=== PATIENT | female | born 1970 | race Caucasian/White ===

== ENCOUNTER → 2021-10-26 06:56 | Outpatient (CLI) | payer OTHER, SELFPAY ==
[2021-10-26 08:20] LABS: Hematocrit 41.4 % (36-46); Hemoglobin 14.6 g/dL (12.0-16.0); Mean Corpuscular HGB Conc 35.2 % (30-36); Mean Corpuscular Hemoglobin 34.1 PG (26-34); Mean Corpuscular Volume 96.9 fL (80-100); Platelet Count 267 X10^3/uL (150-400); Red Blood Cell Count 4.27 X10^6/uL (4.0-5.2); Red Cell Distribution Width 12.1 % (11.6-14.8); White Blood Cell Count 7.3 X10^3/uL (4.5-11.0)
[2021-10-26 08:23] LABS: Alanine Aminotransferase 85 IU/L (<35); Albumin 4.2 g/dL (3.5-5.0); Albumin Globulin Ratio 1.4 (1.0-2.8); Alkaline Phosphatase 141 U/L (38-126); Aspartate Aminotransferase 68 IU/L (14-36); Bilirubin Total 0.6 mg/dL (0.2-1.3); Blood Urea Nitrogen 14 mg/dL (7-17); Calcium 9.5 mg/dL (8.4-10.2); Carbon Dioxide 28 mmol/L (22-32); Chloride 102 mmol/L (98-107); Cholesterol 143 mg/dL (140-199); Estimated Glomerular Filt Rate > 60.0 mL/min (>60); Globulin 3.1 g/dL (1.7-4.1); Glucose 164 mg/dL (70-100); HDL Cholesterol 53 mg/dL (40-60); HEMOLYSIS < 15 (0-50); LDL Cholesterol Calculated 68 mg/dL (<100); Potassium 4.1 mmol/L (3.4-5.1); Sodium 136 mmol/L (137-145); Total Protein 7.3 g/dL (6.3-8.2); Triglycerides 108 mg/dL (35-150)
[2021-10-26 08:58] LABS: TSH w/ Reflex to FT4 2.36 uIU/mL (0.47-4.68)
== END ==
PROVIDERS: Family Provider Physician Assistant; PCP Physician Assistant; Referring Provider Student in an Organized Health Care Education/Training Program; Visit Provider Student in an Organized Health Care Education/Training Program
DX: Z13.220 Encounter for screening for lipoid disorders (principal); Z13.228 Encounter for screening for other metabolic disorders; E03.9 Hypothyroidism, unspecified
CPT/HCPCS: 36415; 80053; 80061; 84443; 85027

== ENCOUNTER 2023-04-24 09:23 | Emergency (ER) | payer OTHER, SELFPAY ==
[2023-04-24] VITALS (15 sets, daily range): BP systolic 96–144; BP diastolic 57–92; PULSE 91–112; RESP 13–23; TEMP 36.7; O2SAT 92–99; BMI 33.2
--- NOTE | 2023-04-24 09:28 | DI.RAD.S_ITS ---
PROCEDURE: XR CHEST 1V INDICATIONS: Shortness of breath TECHNIQUE: One view of the chest was acquired. COMPARISON: None. FINDINGS: Surgical changes and devices: None. Lungs and pleura: Lungs are clear. No pleural effusions or pneumothorax. Mediastinum: Mediastinal contours appear normal. Heart size is normal. Bones and chest wall: No suspicious bony lesions. Overlying soft tissues appear unremarkable. IMPRESSION: No evidence acute pulmonary process. Dictated by: Brigido Regan M.D. on 04/24/2023 at 9:46 Approved by: Brigido Regan M.D. on 04/24/2023 at 9:51
[2023-04-24 09:50] LABS: Add Manual Diff / Slide Review NO; Basophils Absolute Auto 100 /uL (0-100); Basophils Percent Auto 1.1 % (0-2); Eosinophils Absolute Auto 200 /uL (0-450); Hematocrit 44.3 % (36-46); Hemoglobin 15.6 g/dL (12.0-16.0); Lymphocytes Absolute Auto 2500 /uL (1100-4500); Lymphocytes Percent Auto 30.2 % (25-40); Mean Corpuscular HGB Conc 35.3 % (30-36); Mean Corpuscular Hemoglobin 33.4 PG (26-34); Mean Corpuscular Volume 94.7 fL (80-100); Monocytes Absolute Auto 500 /uL (0-900); Monocytes Percent Auto 6.5 % (3-14); Neutrophils Absolute Auto 4800 /uL (1500-7000); Neutrophils Percent Auto 59.2 % (50-75); Platelet Count 267 X10^3/uL (150-400); Red Blood Cell Count 4.67 X10^6/uL (4.0-5.2); Red Cell Distribution Width 12.4 % (11.6-14.8); White Blood Cell Count 8.2 X10^3/uL (4.5-11.0)
[2023-04-24 09:54] LABS: INR 1.2 (0.9-1.3)
[2023-04-24 09:58] LABS: Alanine Aminotransferase 86 IU/L (<35); Albumin 4.7 g/dL (3.5-5.0); Albumin Globulin Ratio 1.3 (1.0-2.8); Alkaline Phosphatase 101 U/L (38-126); Aspartate Aminotransferase 65 IU/L (14-36); BUN Creatinine Ratio 15.4 (6-22); Bilirubin Total 0.7 mg/dL (0.2-1.3); Blood Urea Nitrogen 16 mg/dL (7-17); Calcium 9.7 mg/dL (8.4-10.2); Carbon Dioxide 24 mmol/L (22-32); Chloride 97 mmol/L (98-107); Estimated Glomerular Filt Rate > 60 mL/min (>60); Globulin 3.6 g/dL (1.7-4.1); Glucose 139 mg/dL (70-100); HEMOLYSIS < 15 (0-50); Potassium 3.3 mmol/L (3.4-5.1); Sodium 135 mmol/L (137-145); Total Protein 8.3 g/dL (6.3-8.2)
[2023-04-24 09:59] LABS: Lactate (Lactic Acid) 1.5 mmol/L (0.7-2.1)
[2023-04-24 10:10] LABS: NT-proBNP (BNP-Adult 18+) < 11 pg/mL (<125); Troponin I < 0.012 ng/mL (0.01-0.034)
--- NOTE | 2023-04-24 11:00 | ED_ITS ---
HPI - SOB/Dyspnea General Chief Complaint: Shortness of Breath/Dyspnea Stated Complaint: sent from [facility] high BP SOB Time Seen by Provider: 04/24/23 10:58 Source: patient Mode of arrival: Ambulatory Limitations: no limitations History of Present Illness HPI Narrative: This is a 53-year-old female with fairly recently diagnosed diabetes on metformin and Ozempic for the past 1-2 months, Zofran as needed for nausea, p ramipexole for RLS and trazodone, lorazepam for insomnia and omeprazole for hiatal hernia. Patient presents and states for last several days she is felt like her heart rates a little fast she is felt a little dizzy or lightheaded but no syncope. She will feel short of breath. She states it might have been going on longer but she thinks only couple days. She denies syncope no headache, no fevers or chills, no cold cough or congestion. No chest pain or pressure. She states shortness of breath is with exertion not with resting. She denies any swelling in her extremities. She states she often gets nauseated particularly after the Ozempic and uses Zofran regularly. She was out this weekend so was drinking a little bit less water but still able to keep things down. She states no diarrhea or constipation, no black or bloody stools. She denies any urinary frequency, discharge or other changes. Patient states no travel but was sitting for about 6 hours at a time regularly about 2 weeks ago. She is not any cramping or new leg pain. She states her blood pressure tends to run about 110 systolic. She states she is had a cholecystectomy, hysterectomy and prior back surgery. No known drug allergies. No tobacco, alcohol or illicit. Primary care is Simin bryant. She does follow regularly with her back surgeon. Related Data Home Medications Medication Instructions Recorded Confirmed valacyclovir 500 mg tablet 1,000 mg PO BID PRN 07/20/19 07/20/19 Previous Rx's Medication Instructions Recorded omeprazole 40 mg capsule,delayed 40 mg PO HS #30 caps 05/22/19 release scopolamine base 1 mg over 3 days 1 patch transdermal Q72H #8 patches 07/20/19 transdermal patch (Transderm-Scop) lorazepam 1 mg tablet 0.5 - 1 mg PO QDAYP PRN anxiety 12/14/19 #20 tabs Allergies Allergy/AdvReac Type Severity Reaction Status Date / Time No Known Drug Allergies Allergy Verified 04/24/23 09:29 Review of Systems Review of Systems ROS Unobtainable: All systems reviewed & are unremarkable except as noted in HPI and below Patient History Medical History Anxiety Depression GERD (gastroesophageal reflux disease) Hiatal hernia Lumbar disc disease Migraines Osteoarthritis Surgical History Hx of section Status post hysterectomy Status post laparoscopic cholecystectomy (12/2012) Status post reduction mammoplasty (03/2013) Family History Father Cancer Mother No problems noted. Social History Smoking Status: Never smoker second hand exposure: No alcohol intake: current substance use type: does not use Smoking Status: Never smoker alcohol intake frequency: holidays/special occasions only Substance Use Type: does not use Exam Narrative Exam Narrative: GENERAL: Alert and oriented x three, well-appearing female in mild distress. HEENT: Head normocephalic, atraumatic, EOMI, pupils reactive, face symmetric, moist mucous membranes NECK: Supple, full range of motion CARDIOVASCULAR: Slightly tachycardic but Regular rate and rhythm without murmurs, rubs or gallops. No JVD. No swelling bilateral lower extremities. RESPIRATORY: Breath sounds equal bilaterally, no wheezes rales or rhonchi. No tachypnea, no accessory muscle use. Speaks in full sentences. ABDOMEN: Soft, nontender. Normoactive bowel sounds all 4 quadrants. No guarding or rebound, rigidity, no mass : No CVA tenderness EXTREMITIES: Normal range of motion, no clubbing or edema. Neurovascularly intact. NEUROLOGICAL: Cranial nerves II through XII grossly intact. Moving all extremities. Normal gait. Patient was able to walk to the bathroom back without issue. SKIN: Warm, dry, no petechiae, no rashes or lesions. Initial Vital Signs Initial Vital Signs: Vital Signs Temperature 98.0 F 04/24/23 09:24 Pulse Rate 112 H 04/24/23 09:24 Respiratory Rate 17 04/24/23 09:24 Blood Pressure 144/92 H 04/24/23 09:24 Pulse Oximetry 99 04/24/23 09:24 Oxygen Delivery Method Room Air 04/24/23 09:24 Course Orders Ordered: ED Orders 04/24/23 11:42 EKG-12 Lead Routine 04/24/23 11:44 Trop I [Troponin I] Stat Discontinued Medications Sodium Chloride (Normal Saline 0.9%) 1,000 mls @ 1,000 mls/hr IV BOLUS ONE Stop: 04/24/23 12:17 Last Infusion: 04/24/23 12:27 Dose: 0 mls/hr Documented By: Admin: 04/24/23 11:27 Dose: 1,000 mls/hr Documented By: AT Ondansetron HCl (Ondansetron 4 Mg/2 Ml Inj) 4 mg IV NOW ONE Stop: 04/24/23 11:19 Last Admin: 04/24/23 11:28 Dose: 4 mg Documented By: AT Potassium Chloride (Potassium Chloride 20 Meq Tab) 40 meq PO NOW ONE Stop: 04/24/23 11:19 Last Admin: 04/24/23 11:28 Dose: 40 meq Documented By: AT Vital Signs Vital signs: Vital Signs - 8 hr 04/24/23 11:00 04/24/23 11:01 04/24/23 11:01 Pulse Rate 105 H 103 H Respiratory Rate 21 Blood Pressure 96/66 Pulse Oximetry 94 92 Oxygen Delivery Method 04/24/23 11:30 04/24/23 11:31 04/24/23 11:31 Pulse Rate 95 H 94 H Respiratory Rate 17 16 Blood Pressure 105/57 L Pulse Oximetry 92 Oxygen Delivery Method 04/24/23 12:00 04/24/23 12:01 04/24/23 12:01 Pulse Rate 91 H 91 H Respiratory Rate 22 22 Blood Pressure 132/71 Pulse Oximetry 94 Oxygen Delivery Method 04/24/23 12:30 04/24/23 12:30 04/24/23 12:51 Pulse Rate 93 H 96 H Respiratory Rate 20 23 Blood Pressure 127/81 Pulse Oximetry 99 Oxygen Delivery Method Room Air 04/24/23 12:51 Pulse Rate Respiratory Rate Blood Pressure 136/74 Pulse Oximetry Oxygen Delivery Method MDM - SOB/Dyspnea Lab Data 04/24/23 09:35 04/24/23 09:35 Labs: Lab Results 04/24/23 04/24/23 04/24/23 Range/Units 09:35 09:35 09:35 WBC 8.2 (4.5-11.0) X10^3/uL RBC 4.67 (4.0-5.2) X10^6/uL Hgb 15.6 (12.0-16.0) g/dL Hct 44.3 (36-46) % MCV 94.7 (80-100) fL MCH 33.4 (26-34) PG MCHC 35.3 (30-36) % RDW 12.4 (11.6-14.8) % Plt Count 267 (150-400) X10^3/uL Neut % (Auto) 59.2 (50-75) % Lymph % (Auto) 30.2 (25-40) % Real % (Auto) 6.5 (3-14) % Eos % (Auto) 3.0 (2-4) % Baso % (Auto) 1.1 (0-2) % Neut # (Auto) 4800 (5434-7831) /uL Lymph # (Auto) 2500 (8049-3829) /uL Real # (Auto) 500 (0-900) /uL Eos # (Auto) 200 (0-450) /uL Baso # (Auto) 100 (0-100) /uL PT 14.0 H (10.1-12.7) SECONDS INR 1.2 (0.9-1.3) D-Dimer (<500) ng/ml Sodium 135 L (137-145) mmol/L Potassium 3.3 L (3.4-5.1) mmol/L Chloride 97 L (98-107) mmol/L Carbon Dioxide 24 (22-32) mmol/L BUN 16 (7-17) mg/dL Creatinine 1.04 (0.52-1.04) mg/dL Estimated GFR > 60 (>60) mL/min BUN/Creatinine Ratio 15.4 (6-22) Glucose 139 H (70-100) mg/dL Lactate (0.7-2.1) mmol/L Calcium 9.7 (8.4-10.2) mg/dL Total Bilirubin 0.7 (0.2-1.3) mg/dL AST 65 H (14-36) IU/L ALT 86 H (<35) IU/L Alkaline Phosphatase 101 (38-126) U/L Troponin I < 0.012 (0.01-0.034) ng/mL NT-Pro-B Natriuret Pep < 11 (<125) pg/mL Total Protein 8.3 H (6.3-8.2) g/dL Albumin 4.7 (3.5-5.0) g/dL Globulin 3.6 (1.7-4.1) g/dL Albumin/Globulin Ratio 1.3 (1.0-2.8) 04/24/23 04/24/23 04/24/23 Range/Units 09:35 09:35 11:44 WBC (4.5-11.0) X10^3/uL RBC (4.0-5.2) X10^6/uL Hgb (12.0-16.0) g/dL Hct (36-46) % MCV (80-100) fL MCH (26-34) PG MCHC (30-36) % RDW (11.6-14.8) % Plt Count (150-400) X10^3/uL Neut % (Auto) (50-75) % Lymph % (Auto) (25-40) % Real % (Auto) (3-14) % Eos % (Auto) (2-4) % Baso % (Auto) (0-2) % Neut # (Auto) (4072-7252) /uL Lymph # (Auto) (3228-4490) /uL Real # (Auto) (0-900) /uL Eos # (Auto) (0-450) /uL Baso # (Auto) (0-100) /uL PT (10.1-12.7) SECONDS INR (0.9-1.3) D-Dimer 443 (<500) ng/ml Sodium (137-145) mmol/L Potassium (3.4-5.1) mmol/L Chloride (98-107) mmol/L Carbon Dioxide (22-32) mmol/L BUN (7-17) mg/dL Creatinine (0.52-1.04) mg/dL Estimated GFR (>60) mL/min BUN/Creatinine Ratio (6-22) Glucose (70-100) mg/dL Lactate 1.5 (0.7-2.1) mmol/L Calcium (8.4-10.2) mg/dL Total Bilirubin (0.2-1.3) mg/dL AST (14-36) IU/L ALT (<35) IU/L Alkaline Phosphatase (38-126) U/L Troponin I < 0.012 (0.01-0.034) ng/mL NT-Pro-B Natriuret Pep (<125) pg/mL Total Protein (6.3-8.2) g/dL Albumin (3.5-5.0) g/dL Globulin (1.7-4.1) g/dL Albumin/Globulin Ratio (1.0-2.8) Urine Dip Bedside Urine Glucose Negative Bedside Urine Bilirubin - Negative Bedside Urine Ketone - Negative Urine Specific [place] 1.000 Bedside Urine Occult Blood - Negative Bedside Urine pH 6.0 Bedside Urine Protein - Negative Bedside Urine Urobilinogen - Negative Bedside Urine Nitrite - Negative Bedside Urine Leukocytes - Negative Esterase Imaging Data Chest x-ray: Radiologist's Impression: [address] [address] XRay Report Signed Patient: Leona Mullen MR#: [id number] : 1970 Acct:[id number] Age/Sex: 53 / F Date of Service: 04/24/23 Loc: ED Accession Number: [id number] ?? Procedure: XR chest 1V Ordering Provider: Alexandra Whelan D.O. PROCEDURE:? XR CHEST 1V ? INDICATIONS:? Shortness of breath ? TECHNIQUE:? One view of the chest was acquired.? ? COMPARISON:? None. ? FINDINGS:? ? Surgical changes and devices:? None.? ? Lungs and pleura:? Lungs are clear.? No pleural effusions or pneumothorax.? ? Mediastinum:? Mediastinal contours appear normal.? Heart size is normal.? ? Bones and chest wall:? No suspicious bony lesions.? Overlying soft tissues appear unremarkable.? ? IMPRESSION:? No evidence acute pulmonary process. ? ? ? Dictated by: Brigido Regan M.D. on 04/24/2023 at 9:46 ? ? Approved by: Brigido Regan M.D. on 04/24/2023 at 9:51?? ECG Data Attestation: I personally reviewed and interpreted this ECG as follows: Prior ECG tracings: not available for review Interpretation: Sinus rhythm rate of 100 IA 156 QRS 84 and QTC of 446. Q-wave 2 3 AVF. No elevation. No depression. S1 Q3 no T3. No priors for comparison EKG 2. Sinus rhythm, rate of 100, IA 160, QRS 82 and QTC 451. No acute ST elevation depression noted. Patient's EKG does not have any dynamic changes from prior. MDM Narrative Medical decision making narrative: This is a 53-year-old female with fairly recent diabetes diagnosis on metformin and Ozempic, patient describes having slightly elevated heart rate slightly dizzy some shortness of breath. Physical exam is overall reassuring she is slightly tachycardic she is a little hypotensive in the department. She is not been hypoxic. Patient notes her blood pressures typically 110. CBC is normal, CMP shows potassium of 3.3 creatinine is in normal range but 1.04 BUN normal with a glucose of 139 LFTs are otherwise negative except for AST and ALT being 65 and 86 which patient states she is been told before. Chest x-ray does not sh ow any acute change. EKGs negative. D-dimer was negative patient had had some prolonged sitting 2 weeks ago. Patient was given, urine sample is negative. Patient had oral potassium replacement. She had fluids. Heart rate improved, so did blood pressure. There may be component of dehydration she notes she had decreased intake through the weekend. Patient is ambulating without issue. Discussed return precautions Discharge Plan Departure Patient Disposition: Home Clinical Impression: Dizziness, Hypokalemia Instructions: DI for Dizziness-Nonvertigo Activity Restrictions/Additional Instructions: Your workup today shows some mild hypokalemia or low potassium. Please follow- up with your physician to make sure that your labs continued to be appropriate. You may continue home medications as prescribed. Continue to hydrate regularly. Please return for new or worsening symptoms increasing dizziness, lightheadedness, passing out, new chest pain, increasing or new shortness of breath, persistent vomiting, signs of dehydration, black or bloody stools or other new or concerning changes. Prescriptions: No Action omeprazole 40 mg capsule,delayed release(DR/EC) 40 mg PO HS Qty: 30 2RF lorazepam 1 mg tablet 0.5 - 1 mg PO QDAYP PRN (Reason: anxiety) Qty: 20 0RF valacyclovir 500 mg tablet 1,000 mg PO BID PRN scopolamine base [Transderm-Scop] 1 mg over 3 days patch 3 day 1 patch Transdermal Q72H Qty: 8 1RF Referrals: Radha Alonso PA-C [Primary Care Provider] - Stand Alone Forms: Patient Portal/API
[2023-04-24 11:17] LABS: D Dimer 443 ng/ml (<500)
[2023-04-24] MEDS: SODIUM CHLORIDE 0.9% 1,000 ML 1000 ML IV (11:27)
[2023-04-24] MEDS: POTASSIUM CHLORIDE 20 MEQ TAB 40 MEQ PO (11:28)
[2023-04-24] MEDS: ONDANSETRON 4 MG/2 ML INJ IV (11:28)
[2023-04-24 12:29] LABS: Troponin I < 0.012 ng/mL (0.01-0.034)
== END 2023-04-24 13:00 | disposition home or self-care (01) ==
PROVIDERS: Emergency Provider Emergency Medicine; Family Provider Physician Assistant; PCP Physician Assistant
DX: R42 Dizziness and giddiness (principal); E87.6 Hypokalemia; R00.0 Tachycardia, unspecified; I95.9 Hypotension, unspecified; R11.2 Nausea with vomiting, unspecified
CPT/HCPCS: 36415; 71045; 80053; 81003; 83605; 83880; 84484; 85025; 85379; 85610; 93005; 93010; 96361; 96374; 99284; J2405

== ENCOUNTER → 2023-09-10 08:11 | Outpatient (CLI) | payer OTHER, SELFPAY ==
--- NOTE | 2023-09-10 | DI.MG.S_ITS ---
BILATERAL DIGITAL SCREENING MAMMOGRAM 3D/2D WITH CAD: 09/10/2023 CLINICAL: Routine screening. Comparison is made to exam dated: 01/13/2021 mammogram - Outside facility. There are scattered areas of fibroglandular density in both breasts (category b / 25%-50% glandular tissue). Current study was also evaluated with a Computer Aided Detection (CAD) system. There are benign calcifications in both breasts. There also are benign vascular calcifications in both breasts. No significant masses, calcifications, or other findings are seen in either breast. There has been no significant interval change. IMPRESSION: BENIGN There is no mammographic evidence of malignancy. A 1 year screening mammogram is recommended. Based on the Tyrer Cuzick model (a risk assessment model) the patient's lifetime risk is 6.5% and her 10 year risk is 1.8%. According to the ACR, ACS, and NCCN guidelines, an annual breast MRI exam along with mammogram is recommended if the patient's lifetime risk is 20% or greater. This exam was interpreted at Station ID: [id number]. NOTE: For mammograms, a report in lay terms will be sent to the patient. Approximately 15% of breast malignancies will not be visualized mammographically. In the management of a palpable breast mass, a negative mammogram must not discourage biopsy of a clinically suspicious lesion. Electronically Signed By: Carolina lara/ellis:09/10/2023 12:18:32 letter sent: Normal Exam ACR BI-RADS Category 2: Benign Finding(s) 3342F
== END ==
LOC: MAMMO 08:12
PROVIDERS: PCP Internal Medicine; Referring Provider Internal Medicine; Visit Provider Internal Medicine
DX: Z12.31 Encounter for screening mammogram for malignant neoplasm of breast (principal)
CPT/HCPCS: 77063; 77067